=== PATIENT | male | born 1970 | race Caucasian/White ===

== ENCOUNTER 2020-12-11 06:18 | Day surgery (SDC) | payer OTHER ==
[~2020-12-11] VITALS: Ht 182.9 cm; Wt 117.9 kg
[~2020-12-11 06:18] MED LIST: ASPIRIN81 MG PO; CEPHALEXIN500 MG OR; HUMULIN N1 ML; HUMULIN N1 ML SC; HUMULIN N100 UNIT/M SC; HUMULIN R1 M1; HUMULIN R1 M1 SC; HUMULIN R500 UNIT/M SC; LORTAB 5 OR; METO50TA52 OR; METO50TA52 PO; MONOPRIL10 M1 OR; MONOPRIL10 MG OR; MONOPRIL10 MG PO; MULTI VIT PO; NAFTIN2 % EX; ONE TOUCH ULTRA SC; TOPROL XL50 MG PO
[2020-12-11 08:15] VITALS: BP 127/72
== END 2020-12-11 08:25 | disposition home or self-care (01) | DRG 951 ==
LOC: ENDO 06:18
PROVIDERS: ATTEND Surgery
PROC: 0DJD8ZZ Inspection of Lower Intestinal Tract, Via Natural or Artificial Opening Endoscopic (ICD-10-PCS; principal; 2020-12-11)
DX: Z12.11 Encounter for screening for malignant neoplasm of colon (principal); I10 Essential (primary) hypertension; E11.9 Type 2 diabetes mellitus without complications; Z79.4 Long term (current) use of insulin; Z20.822 Contact with and (suspected) exposure to COVID-19